=== PATIENT | female | born 1965 | race Caucasian/White ===

== ENCOUNTER 2023-03-20 14:53 | Observation (INO) | payer BC ==
[2023-03-20 18:47] VITALS: BMI 26.1
[2023-03-20] MEDS ORDERED: Ondansetron PF 4 MG/2 ML Vial IVP PRN (19:00)
[2023-03-20] MEDS ORDERED: Ondansetron ODT 4 MG TAB SL PRN (19:00)
[2023-03-20] MEDS ORDERED: Nitroglycerin 0.4 MG TAB (25 Tab Bottle) SL PRN (19:22)
[2023-03-20 20:28] LABS: Troponin I Less than 0.010 ng/mL (< 0.028)
[2023-03-20] MEDS ORDERED: Acetaminophen 325 MG TAB PO PRN (21:23)
[2023-03-21 00:16] LABS: SARS-CoV-2 NAA Rapid Test Not Detected (NotDetected)
[2023-03-21 08:03] VITALS: TEMP 98
[2023-03-21 08:07] LABS: Hematocrit 45.8 % (36.0-47.0); Hemoglobin 15.2 g/dL (12.0-16.0); Manual Diff?? YES; Mean Corpuscular HGB CONC 33.2 g/dL (32.0-36.0); Mean Corpuscular Hemoglobin 30.7 pg (27.0-31.0); Mean Corpuscular Volume 92.5 fl (78.0-98.0); Mean Platelet Volume 9.4 fL (7.4-10.4); Platelet Count 252 10x3/uL (130-400); RBC Distribution Width 12.8 % (11.5-14.5); Red Blood Cell (RBC) Count 4.95 mill/uL (4.20-5.40); White Blood Cell (WBC) Count 6.6 10x3/uL (4.8-10.8)
[2023-03-21 08:13] LABS: Delete Auto Diff?? YES
[2023-03-21 08:32] LABS: Anion Gap 14 mmol/L (10-20); BUN (Urea Nitrogen) 11 mg/dL (9.8-20.1); Calc. Creatinine Clearance 89 mL/min (70-130); Carbon Dioxide 25 mmol/L (22-29); Cardiac Risk 4.5 (Less than 4.5); Chloride 106 mmol/L (98-107); Cholesterol 231 mg/dl (< 200 Desired); Estimated GFR 90; Glucose 80 mg/dL (70-105); HDL Cholesterol 51 mg/dL (>60 Neg Risk); LDL Cholesterol, Calculated 160 mg/dL; Potassium 3.9 mmol/L (3.5-5.1); Sodium 141 mmol/L (136-145); Triglycerides 100 mg/dL (Less than 150)
[2023-03-21 08:36] LABS: Troponin I Less than 0.010 ng/mL (< 0.028)
[2023-03-21 08:53] LABS: Eosinophils 31 % (0-10); Lymphocytes 19 % (21-51); Monocytes 5 % (0-10); Neutrophil 39 % (42-75); Reactive Lymphocytes 6 % (0-10)
[2023-03-21 08:54] LABS: Platelet Adequacy Comment Platelets Normal; Polychromasia SLIGHT = 2-3 cells (100X) (0-2/hpf)
[2023-03-21] MEDS ORDERED: Pantoprazole 40 MG GRANULES PACKET PO SCH (09:00)
[2023-03-21] MEDS ORDERED: ADENOSINE 60 MG/20 ML SDV ONE (11:55)
[2023-03-21] MEDS ORDERED: Polyethylene Glycol 3350 17 GM Packet PO PRN (13:10)
[2023-03-21 15:21] VITALS: BP 139/70
[2023-03-21] MEDS ORDERED: Lidocaine 2% Viscous Solution 10 ML, Aluminum & Magnesium Hydroxide 30 ML SSW SCH (16:15)
== END 2023-03-21 17:29 | disposition home or self-care (01) ==
LOC: 2SW 18:26
PROVIDERS: ADMIT Internal Medicine; ATTEND Internal Medicine
DX: R07.9 Chest pain, unspecified (principal); E78.5 Hyperlipidemia, unspecified; I21.4 Non-ST elevation (NSTEMI) myocardial infarction; K21.9 Gastro-esophageal reflux disease without esophagitis; Z79.82 Long term (current) use of aspirin; Z79.899 Other long term (current) drug therapy; Z88.0 Allergy status to penicillin; Z88.6 Allergy status to analgesic agent
CPT/HCPCS: 36415; 78452; 80048; 80061; 83036; 83735; 83880; 84443; 84484; 85025; 85379; 93017; A9500; G0378; J0153